=== PATIENT | female | born 1970 | race Caucasian/White ===

== ENCOUNTER → 2016-12-06 | Outpatient (CLI) | payer OTHER ==
[~2016-12-06] MED LIST: ATV5 PO; BUPR-79 PO; CHOL100010 PO; CHOL100027 PO; CLON0.5T3 PO; CYM30 PO; DXP/75 PO; ELET20TA PO; FLX10 PO; IMTUNK; KLN1X PO; MELO15TA4 PO; METO50TA16 PO; MRP25 PO; OXYC-57 PO; OXYM1TAB37 PO; OXYMTAB PO; PREG100C PO; ROPI1TAB PO; SNQ/50 PO; TOPI100T20 PO; TOPI200T14 PO; ZCR40 PO; ZNF/4 PO; ZOLP5TAB6 PO
[2016-12-06 09:53] LABS: ALT/SGPT 40 U/L (12-78); AST/SGOT 24 U/L (15-37); BLOOD UREA NITROGEN 11 mg/dl (7-18); BUN/CREATININE RATIO 12.4 (10-20); CALCIUM 9.2 mg/dl (8.5-10.1); CARBON DIOXIDE 26 mmol/L (21-32); CHLORIDE 107 mmol/L (98-107); CHOLESTEROL 161 mg/dl (0-200); CREATININE 0.92 mg/dl (0.60-1.20); GLUCOSE 107 mg/dl (70-99); POTASSIUM 4.3 mmol/L (3.5-5.1); SODIUM 142 mmol/L (136-145); TRIGLYCERIDES 222 mg/dl (0-150); VERY LOW DENSITY LIPOPROT CALC 44 mg/dl
[2016-12-06 09:56] LABS: ALB/GLOB RATIO 1.1 (0.9-2); ALKALINE PHOSPHATASE 62 U/L (45-117); CHOLESTEROL/HDL RATIO 5.2; HDL CHOLESTEROL 31 mg/dl; LDL CHOLESTEROL CALCULATED 86 mg/dl
== END | disposition home or self-care (01) ==
LOC: C.LAB 08:08
PROVIDERS: ATTEND Internal Medicine Cardiovascular Disease
DX: E78.5 Hyperlipidemia, unspecified (principal); I47.1 Supraventricular tachycardia

== ENCOUNTER 2017-01-25 22:49 | Emergency (ER) | payer OTHER ==
[~2017-01-25] VITALS: Ht 161.3 cm; Wt 107.4 kg
[~2017-01-25 22:49] MED LIST changes: -CHOL100027 PO; -CYM30 PO; -DXP/75 PO; -KLN1X PO; -MELO15TA4 PO; -METO50TA16 PO; -MRP25 PO; -OXYC-57 PO; -OXYM1TAB37 PO; -OXYMTAB PO; -SNQ/50 PO; -ZCR40 PO; -ZNF/4 PO; -ZOLP5TAB6 PO
[2017-01-25 22:55] VITALS: TEMP 36.6; Ht 161.3 cm; Wt 107.4 kg
[2017-01-25] MEDS ORDERED: DiphenhydrAMINE HCL 50 MG/ML VIAL IV STA (23:21)
[2017-01-25] MEDS ORDERED: KETOROLAC TROMETHAMINE 30 MG/ML VIAL IV STA (23:21)
[2017-01-25] MEDS ORDERED: PROCHLORPERAZINE 5 MG/ML 2 ML VIAL IV STA (23:21)
[2017-01-25] MEDS ORDERED: SODIUM CHLORIDE 0.9% 1000ML 1,000 ML IV STA (23:21)
--- NOTE | 2017-01-25 23:31 | EMERGENCY ROOM VISIT NOTE ---
History Report prepared by Yonny: Edie Regan Under the Supervision of: Dr. Julianna Roman M.D. First contact with patient: 23:10 Chief Complaint: HEADACHE Stated Complaint: MIGRAINE, R EYE AND FACE History of Present Illness The patient is a 46 year old female who presents to the Emergency Room with complaints of worsening migraine starting 2 days [employer]. The patient currently rates her pain as a 7/10 in severity. The patient states that today the migraine worsened and she started to have pain in her right eye and the whole right side of her face. The patient states that she has chronic migraine but that they have been manageable lately but her recent migraine has been worse than usual. The patient states she also has nausea associated with her migraine but denies any recent fevers, weakness or changes in her speech. She states that she use to take Topamax for her chronic migraines but that her psychiatrist took off of it. The patient states that it has been some time since her last CT scan or MRI and that she does not currently see a neurologist. The patient states that she has a medical history including fibromyalgia, rheumatoid arthritis, degenerative disc disease and gestational diabetes, but denies any other history of diabetes. Source of History: patient Onset: 2 days [employer] Position: head Symptom Intensity: 7/10 Timing: worsening, other (persistent) Associated Symptoms: No fevers, No weakness Note: Associated symptoms: right eye pain, right face pain. Patient denies any changes in her speech. Review of Systems See HPI for pertinent positives & negatives. A total of 10 systems reviewed and were otherwise negative. Past Medical & Surgical Medical Problems: (1) Degenerative disc disease (2) Gestational diabetes Family History Cancer Diabetes mellitus Heart disease Hypertension Kidney disease Kidney disease Kidney stones Lung disease Seizures Social History Smoking Status: Current Every Day Smoker Marital Status: Occupation Status: employed Current/Historical Medications Scheduled Bupropion (Wellbutrin Sr), 150 MG PO BID Cholecalciferol (Vitamin D 1000 Unit), 1,000 INTER.UNIT PO DAILY Doxepin Hcl (Sinequan), 50 MG PO DAILY Duloxetine HCl (Duloxetine HCl), 30 MG PO DAILY Meloxicam (Meloxicam), 15 MG PO DAILY Metoprolol Tartrate (Lopressor) (Lopressor), 50 MG PO BID Oxymorphone Hcl (Oxymorphone Hydrochloride), 10 MG PO Q12 Pramipexole Dihydrochloride (Pramipexole Dihydrochlori), 0.25 MG PO HS Simvastatin (Simvastatin), 40 MG PO DAILY Scheduled PRN Clonazepam (Clonazepam), 1 MG PO DAILY PRN for Anxiety Oxymorphone Hcl (Oxymorphone Hydrochloride), 5 MG PO Q6 PRN for Pain Tizanidine (Tizanidine HCl), 4 MG PO TID PRN for Anxiety Zolpidem Tartrate (Zolpidem Tartrate), 5 MG PO HS PRN for Sleep Allergies Coded Allergies: Aspirin (Verified Adverse Reaction, Mild, UPSET STOMACH, 01/26/17) Physical Exam Vital Signs Date Time Temp Pulse Resp B/P Pulse Ox O2 Delivery O2 Flow Rate FiO2 01/26/17 02:15 87 18 98/82 97 01/26/17 01:50 87 18 98/82 97 Room Air 01/25/17 23:59 80 18 126/72 95 Room Air 01/25/17 22:55 36.6 95 18 136/96 95 Room Air Physical Exam Vital signs reviewed. General: Well-appearing female, in no significant distress. HEENT: No scleral icterus, PERRLA, neck supple. Atraumatic. No meningeal signs. Cardiovascular: Regular rate and rhythm, no extra sounds. Pulmonary: Clear to auscultation bilaterally, normal work of breathing. Abdomen: Soft, nontender, nondistended, positive bowel sounds. Obese. Musculoskeletal: Atraumatic, no peripheral edema. Neurologic: Patient awake alert and oriented x 3, full strength in all 4 extremities. Cranial nerves 2 through 12 grossly intact. Skin: Warm, dry, no rash Medical Decision & Procedures ER Provider Diagnostic Interpretation: CT results as stated below per my review and radiologist interpretation: Preliminary Findings Only--See Final Report For Complete Findings; CT HEAD: Compared to 02/03/2010 No acute intracranial process. Radiologist: Grace Ramos M.D Study ready at 8926 and initial results transmitted at 0034 Laboratory Results 01/25/17 23:35 Red Blood Count 4.38, Mean Corpuscular Volume 91.6, Mean Corpuscular Hemoglobin 32.2, Mean Corpuscular Hemoglobin Concent 35.2, Mean Platelet Volume 10.3 01/25/17 23:35 Test 01/25/17 23:35 White Blood Count 12.78 K/uL (4.8-10.8) Red Blood Count 4.38 M/uL (4.2-5.4) Hemoglobin 14.1 g/dL (12.0-16.0) Hematocrit 40.1 % (37-47) Mean Corpuscular Volume 91.6 fL (80-100) Mean Corpuscular Hemoglobin 32.2 pg (25-34) Mean Corpuscular Hemoglobin Concent 35.2 g/dl (32-36) Platelet Count 237 K/uL (130-400) Mean Platelet Volume 10.3 fL (7.4-10.4) RDW Standard Deviation 44.5 fL (36.4-46.3) RDW Coefficient of Variation 13.3 % (11.5-14.5) Neutrophils % (Manual) 46.7 % Lymphocytes % (Manual) 29.9 % Variant Lymphocytes % (manual) 16.8 % Monocytes % (Manual) 1.9 % Eosinophils % (Manual) 4.7 % Neutrophils # (Manual) 5.97 K/uL (1.4-6.5) Total Absolute Neutrophils 5.97 K/uL (1.4-6.5) Lymphocytes # (Manual) 3.82 K/uL (1.2-3.4) Absolute Variant Lymphocytes 2.15 K/uL Total Absolute Lymphocytes 5.97 K/uL (1.2-3.4) Monocytes # (Manual) 0.24 K/uL (0.11-0.59) Eosinophils # (Manual) 0.60 K/uL (0-0.5) Red Blood Cell Morphology Unremarkable Anion Gap 9.0 mmol/L (3-11) Est Creatinine Clear Calc Drug Dose 69.4 ml/min Estimated GFR () 62.8 Estimated GFR (Non- 54.2 BUN/Creatinine Ratio 16.8 (10-20) Calcium Level 9.2 mg/dl (8.5-10.1) Total Bilirubin 0.3 mg/dl (0.2-1) Direct Bilirubin < 0.1 mg/dl (0-0.2) Aspartate Amino Transf (AST/SGOT) 21 U/L (15-37) Alanine Aminotransferase (ALT/SGPT) 42 U/L (12-78) Alkaline Phosphatase 71 U/L (45-117) Total Protein 7.4 gm/dl (6.4-8.2) Albumin 4.1 gm/dl (3.4-5.0) Laboratory results per my review. Medications Administered Medications (Trade) Dose Ordered Sig/Aisha Route Start Time Stop Time Status Last Admin Dose Admin Prochlorperazine Edisylate (Compazine Inj) 10 mg NOW STAT IV 01/25/17 23:21 01/25/17 23:23 DC 01/25/17 23:44 10 MG Diphenhydramine HCl (Benadryl Inj) 25 mg NOW STAT IV 01/25/17 23:21 01/25/17 23:23 DC 01/25/17 23:44 25 MG Ketorolac Tromethamine 30 mg 30 mg NOW STAT IV 01/25/17 23:21 01/25/17 23:23 DC 01/25/17 23:44 30 MG Sodium Chloride (Nss 1000ml) 1,000 ml @ 999 mls/hr Q1H1M STAT IV 01/25/17 23:21 01/26/17 00:21 DC 01/25/17 23:44 999 MLS/HR Morphine Sulfate (MoRPHine SULFATE INJ) 6 mg NOW STAT IV 01/26/17 00:40 01/26/17 00:42 DC 01/26/17 00:47 6 MG ED Course 2319: Past medical records reviewed. The patient was evaluated in room B8. A complete history and physical examination was performed. 2321: Ordered Sodium Chloride 1,000 ml @ 999 mls/hr IV, Toradol Inj 30 mg IV, Benadryl Inj 25 mg IV, Compazine Inj 10 mg IV. 0039: I reevaluated the patient and she states she still was having a headache but it has improved from a 7/10 to a 4/10. 0040: Ordered Morphine Sulfate 6 mg IV. 0212: Upon reevaluation, the patient appeared to have improvement of her symptoms. I discussed findings with her. She verbalized agreement of the treatment plan. The patient was discharged home. Medical Decision DDx: Intracranial hemorrhage, intracranial mass, migraine headache, tension headache , sinusitis, meningitis This pt was evaluated and appeared to be in no distress. IV access was obtained and lab work was drawn. Pt was placed on the oncology specialist. Pt was medicated with IV compazine, benadryl and toradol with 1 L NSS. Pt had significant improvement in the FULTON, but rated pain 4/10. CT head was performed as she has not been seen for FULTON in some time and it seems worse than usual. This study is negative. Labs reveal a mild leukocytosis and hyperglycemia. Pt was given IV morphine 6 mg with significant relief. Pt was d/c to the care of her s/o to f/u with PCP this week. She will return to the ED for worsening of symptoms or any medical concerns. Impression Primary Impression: Migraine headache Scribe Attestation The scribe's documentation has been prepared under my direction and personally reviewed by me in its entirety. I confirm that the note above accurately reflects all work, treatment, procedures, and medical decision making performed by me. Departure Information Dispostion Home / Self-Care Referrals Kitty Leyva PA-C (PCP) Forms HOME CARE DOCUMENTATION FORM, IMPORTANT VISIT INFORMATION Patient Instructions My [facility] Additional Instructions Diagnosis: Migraine headache Drink plenty of clear fluids. Resume your medications as prescribed. Follow-up with your physician this week for reevaluation. Return to the ER for worsening of symptoms or any medical concerns.
[2017-01-25 23:46] LABS: HEMATOCRIT 40.1 % (37-47); MEAN CELL VOLUME 91.6 fL (80-100); MEAN CORPUSCULAR HEMOGLOBIN 32.2 pg (25-34); MEAN CORPUSCULAR HGB CONC 35.2 g/dl (32-36); MEAN PLATELET VOLUME 10.3 fL (7.4-10.4); PLATELET COUNT 237 K/uL (130-400); RED BLOOD COUNT 4.38 M/uL (4.2-5.4); WHITE BLOOD COUNT 12.78 K/uL (4.8-10.8)
[2017-01-26 00:03] LABS: ALT/SGPT 42 U/L (12-78); BLOOD UREA NITROGEN 20 mg/dl (7-18); BUN/CREATININE RATIO 16.8 (10-20); CALCIUM 9.2 mg/dl (8.5-10.1); CARBON DIOXIDE 26 mmol/L (21-32); CHLORIDE 108 mmol/L (98-107); GLUCOSE 122 mg/dl (70-99); POTASSIUM 3.7 mmol/L (3.5-5.1); SODIUM 143 mmol/L (136-145)
[2017-01-26 00:06] LABS: ALKALINE PHOSPHATASE 71 U/L (45-117); AST/SGOT 21 U/L (15-37)
[2017-01-26] MEDS ORDERED: MoRPHine SULFATE 10 MG/ML CARP/VIAL IV STA (00:40)
[2017-01-26 00:53] LABS: COMPLETE YES; EOSINOPHIL % 4.7 %; LYMPH ABS # 3.82 K/uL (1.2-3.4); LYMPHOCYTE % 29.9 %; NEUTROPHILS % 46.7 %; VARIANT LYM ABS # 2.15 K/uL; VARIANT LYMPHOCYTE % 16.8 %
[2017-01-26] MEDS ORDERED: METO50TA16 PO (02:09)
[2017-01-26] MEDS ORDERED: KLN1X PO (02:09)
[2017-01-26] MEDS ORDERED: OXYM1TAB37 PO (02:09)
[2017-01-26] MEDS ORDERED: ZCR40 PO (02:09)
[2017-01-26] MEDS ORDERED: MELO15TA4 PO (02:09)
[2017-01-26] MEDS ORDERED: ZNF/4 PO (02:09)
[2017-01-26] MEDS ORDERED: OXYMTAB PO (02:09)
[2017-01-26] MEDS ORDERED: ZOLP5TAB6 PO (02:09)
[2017-01-26] MEDS ORDERED: MRP25 PO (02:09)
[2017-01-26] MEDS ORDERED: CHOL100027 PO (02:11)
[2017-01-26] MEDS ORDERED: CYM30 PO (02:12)
[2017-01-26] MEDS ORDERED: SNQ/50 PO (02:12)
[2017-01-26 02:15] VITALS: BP 98/82; PULSE 87; O2SAT 97
--- NOTE | 2017-01-26 07:18 | DIAGNOSTIC IMAGING REPORT ---
CT SCAN OF THE BRAIN WITHOUT IV CONTRAST CLINICAL HISTORY: Headache. COMPARISON STUDY: CT of the brain dated 02/03/2010. TECHNIQUE: Unenhanced axial CT scan of the brain is performed from the vertex to the skull base. Automated dose control exposure was utilized. CT DOSE: 537.48 mGy.cm FINDINGS: Brain parenchyma: The brain parenchyma is normal in appearance. There is no hemorrhage, mass effect, or evidence of acute territorial ischemia by CT criteria. Ho-white matter is preserved. No extra-axial fluid collection is seen. Ventricles, sulci, cisterns: Normal in configuration. Intracranial vasculature: The visualized intracranial vasculature at the skull base is normal in appearance. Calvarium: Unremarkable. Sinuses and mastoids: The visualized paranasal sinuses are clear. The mastoid air cells are well pneumatized. Orbits: The bony orbits are grossly intact. IMPRESSION: No acute intracranial abnormality. Electronically signed by: Jason Roe M.D. 01/26/2017 7:16 AM Dictated Date/Time: 01/26/2017 7:15 AM
[2017-04-25] MEDS ORDERED: DXP/75 PO (15:23)
[2017-04-27] MEDS ORDERED: OXYC-57 PO (10:41)
== END 2017-01-26 02:15 | disposition home or self-care (01) ==
LOC: C.EDB 22:52
DX: G43.909 Migraine, unspecified, not intractable, without status migrainosus (principal); F17.200 Nicotine dependence, unspecified, uncomplicated

== ENCOUNTER → 2017-04-24 | Outpatient (CLI) | payer OTHER ==
[~2017-04-24] MED LIST changes: -ATV5 PO; -CHOL100010 PO; +CHOL100027 PO; -CLON0.5T3 PO; +CYM30 PO; +DXP/75 PO; -ELET20TA PO; -FLX10 PO; -IMTUNK; +KLN1X PO; +MELO15TA4 PO; +METO50TA16 PO; +MRP25 PO; +OXYC-57 PO; +OXYM1TAB37 PO; +OXYMTAB PO; -PREG100C PO; -ROPI1TAB PO; +SNQ/50 PO; -TOPI100T20 PO; -TOPI200T14 PO; +ZCR40 PO; +ZNF/4 PO; +ZOLP5TAB6 PO
[2017-04-24 10:00] LABS: BASO % 0.3 %; BASO ABS # 0.03 K/uL (0-0.2); COMPLETE YES; EOS % 1.5 %; HEMATOCRIT 43.9 % (37-47); IG% 0.2 %; LYMPH % 47.9 %; LYMPH ABS # 4.81 K/uL (1.2-3.4); MEAN CELL VOLUME 92.8 fL (80-100); MEAN CORPUSCULAR HEMOGLOBIN 31.7 pg (25-34); MEAN CORPUSCULAR HGB CONC 34.2 g/dl (32-36); MEAN PLATELET VOLUME 10.6 fL (7.4-10.4); MONO % 6.6 %; NEUT % 43.5 %; PLATELET COUNT 252 K/uL (130-400); RED BLOOD COUNT 4.73 M/uL (4.2-5.4); WHITE BLOOD COUNT 10.05 K/uL (4.8-10.8)
--- NOTE | 2017-04-24 10:17 | DIAGNOSTIC IMAGING REPORT ---
TWO VIEW CHEST CLINICAL HISTORY: Preoperative examination. FINDINGS: PA and lateral chest radiographs are compared to study dated 04/03/2014. The examination is degraded by large body habitus. The cardiomediastinal silhouette is unremarkable. There is chronic elevation of the right hemidiaphragm with minimal right basilar atelectasis. The lungs and pleural spaces are otherwise clear. There is no pneumothorax. The bony thorax appears intact. IMPRESSION: No active disease in the chest. Electronically signed by: Jason Roe M.D. 04/24/2017 10:16 AM Dictated Date/Time: 04/24/2017 10:15 AM
--- NOTE | 2017-04-24 10:19 | DIAGNOSTIC IMAGING REPORT ---
LUMBAR SPINE 5 VIEWS CLINICAL HISTORY: Chronic low back pain. FINDINGS: 5 views of the lumbar spine are compared to study dated 11/03/2014. The skeletal structures are well mineralized. There is no radiographic evidence of fracture or malalignment. Vertebral body height and alignment are maintained. There is mild straightening of the lumbar lordosis. Minimal facet arthropathy seen in the lower lumbar region. The transverse and spinous processes are intact. There is no evidence of spondylolysis. Tiny anterior osteophytes are seen throughout. Mild degenerative disc space narrowing is seen at L2-L3 and L3-L4. The remaining Intervertebral disc spaces appear maintained. The visualized bony pelvis appears intact. There is a nonobstructed abdominal bowel gas pattern. There is mild colonic fecal retention. Cholecystectomy clips are noted in the right upper quadrant. There is mild atherosclerotic calcification of the abdominal aorta, advanced for age. IMPRESSION: 1. No acute bony abnormality is seen involving the lumbosacral spine. 2. Mild degenerative change as above. Electronically signed by: Jason Roe M.D. 04/24/2017 10:18 AM Dictated Date/Time: 04/24/2017 10:16 AM
[2017-04-24 10:33] LABS: BLOOD UREA NITROGEN 12 mg/dl (7-18); CALCIUM 9.7 mg/dl (8.5-10.1); CARBON DIOXIDE 29 mmol/L (21-32); CHLORIDE 105 mmol/L (98-107); CREATININE 0.98 mg/dl (0.60-1.20); GLUCOSE 102 mg/dl (70-99); POTASSIUM 4.6 mmol/L (3.5-5.1); SODIUM 141 mmol/L (136-145)
--- NOTE | 2017-04-24 10:33 | DIAGNOSTIC IMAGING REPORT ---
SACRUM AND SACROILIAC JOINTS 3 VIEWS CLINICAL HISTORY: Chronic low back pain. FINDINGS: 3 views of the sacrum and sacroiliac joints are correlated with pelvic CT dated 04/24/2010. The skeletal structures are well mineralized. There is no radiographic evidence of sacral fracture. Minimal degenerative sclerosis is noted in the sacroiliac joints. No erosive change is identified. The remainder of the visualized bony pelvis is. There is a nonobstructed abdominal bowel gas pattern. IMPRESSION: No acute bony abnormality is seen. Minimal degenerative change as above. Electronically signed by: Jason Roe M.D. 04/24/2017 10:32 AM Dictated Date/Time: 04/24/2017 10:30 AM
== END | disposition home or self-care (01) ==
LOC: C.LAB 09:05
PROVIDERS: ATTEND Orthopaedic Surgery
DX: Z01.818 Encounter for other preprocedural examination (principal); S46.111A Strain of muscle, fascia and tendon of long head of biceps, right arm, initial encounter; X58.XXXA Exposure to other specified factors, initial encounter; M51.36 Other intervertebral disc degeneration, lumbar region; M54.16 Radiculopathy, lumbar region

== ENCOUNTER → 2017-04-27 | Day surgery (SDC) | payer OTHER ==
[2017-04-25 15:24] VITALS: Ht 162.6 cm; Wt 106.8 kg
[~2017-04-27] VITALS: Ht 162.6 cm; Wt 106.8 kg
[~2017-04-27] MED LIST changes: +ATROPINE SULFATE 0.1 MG/ML 5ML SYR IV PRN; +BUPIVACAINE/EPINEPHRINE 0.25% 1:200,000 30 ML VIAL ONE; +CEFAZOLIN 2000 MG/60 ML D5W IV SCH; +DEXAMETHASONE SOD INJ 4 MG/ML VIAL IV PRN; +DEXAMETHASONE SOD INJ 4 MG/ML VIAL ONE; +EpHEDrine SULFATE INJ 50 MG/ML AMP IV PRN; +EpINEphrine INJ 1MG/ML AMP 1 MG/ML AMP ONE; +FENTANYL CITRATE INJ 50 MCG/1 ML 2 ML VIAL IV PRN; +FENTANYL CITRATE INJ 50 MCG/1 ML 2 ML VIAL ONE; +KETOROLAC TROMETHAMINE 30 MG/ML VIAL IV. PRN; +LABETALOL HCL IV 5 MG/ML 20ML IV PRN; +LACTATED RINGER'S 1000ML 1,000 ML IV SCH; +LIDOCAINE HCL 1% MPF 2 ML VIAL ONE; +LIDOCAINE HCL 2% 2 ML VIAL (20MG/ML) ONE; +METOCLOPRAMIDE HCL INJ 5 MG/ML 2 ML VIAL IV PRN; +MIDAZOLAM HCL 1 MG/ML 2ML VIAL ONE; +MoRPHine SULFATE 10 MG/ML CARP/VIAL IV PRN; +ONDANSETRON INJ 2 MG/ML 2 ML VIAL IV PRN; +ONDANSETRON INJ 2 MG/ML 2 ML VIAL ONE; +OXYCODONE/ACETAMINOPHEN 5-325 TAB PO PRN; +PHENYLEPHRINE 100MCG/ML 5ML SYR IV PRN; +PROPOFOL IV EMULSION 10 MG/ML 20 ML VIAL IV ONE; +ROPIVACAINE 0.5% 5 MG/ML 30 ML VIAL ONE; -SNQ/50 PO; +SODIUM CHLORIDE 0.9% 1000ML 1,000 ML IV SCH
--- NOTE | 2017-04-27 06:59 | History & Physical Bridge - SC ---
H&P Re-Evaluation Bridge Note: I have examined the patient, reviewed the History & Physical and in the interval since the performance of the History & Physical I have noted the following changes of clinical significance: No changes noted
--- NOTE | 2017-04-27 10:42 | Discharge Instructions-SurgCtr ---
Discharge Instructions Date of Service Apr 27, 2017. Visit Reason for Visit: Right Shoulder Rotator Cuff Syndrome, Biceps Tendo Discharge Discharge Diagnosis / Problem: SAME ABOVE Discharge Goals Goal(s): Decrease discomfort, Improve function Activity Recommendations Activity Limitations: as noted below Lifting Limitations: until after follow-up appointment Exercise/Sports Limitations: gradually increase as tolerated Shower/Bathe: tomorrow Anesthesia . Post Anesthesia Instructions: If you have had General Anesthesia or IV Sedation: * Do not drive today. * Resume driving when surgeon permits. * Do not make important decisions or sign legal documents today. * Call surgeon for: 1. Temperature elevations greater than 101 degrees F. 2. Uncontrollable pain. 3. Excessive bleeding. 4. Persistent nausea and vomiting. 5. Medication intolerance (nausea, vomiting or rash). * For nausea and vomiting use only clear liquids such as: tea, soda, bouillon until nausea subsides, then gradually increase diet as tolerated. * If you have any concerns or questions, call your surgeon's office. If physician is unavailable and it is an emergency, call 911 or go to the nearest emergency room. . Instructions / Follow-Up Instructions / Follow-Up MEDICATIONS: * Resume previous medications unless instructed otherwise by your surgeon. * Always take pain medication on a full stomach or with food to avoid upset stomach. * Do not drink alcohol or drive while taking narcotics. * Ibuprofen or Tylenol may be taken if narcotic not needed. SPECIAL CARE INSTRUCTIONS: __ None _X_ Keep extremity elevated and iced x 48 hours; apply ice 20-30 minutes 8-10 times/day. May remove at night. __ Sling __24 hrs/day __ Remove at night _X_ Shoulder Immobilizer (MAY REMOVE AFTER 48 HOURS ONLY TO SHOWER AND FOR THERAPY) _X_ 24 hrs/day __ Remove at night _X_ Dressing __ Maintain until seen in office, may shower with plastic over site _X_ Remove dressings in 24-48 hours and then may shower _X_ Cover incisions with band-aids after showering __ Do not remove steri-strips Call physician if chills or temperature rises above 102 degrees or pain unrelieved by prescribed pain medications at . . Diet Recommendations Home Diet: no limitations Fluid Restriction: None Procedures Procedures Performed: Right Shoulder Arthroscopy, Medium Rotator Cuff Repair, Acromioplasty, Distal Clavicle Resection Pending Studies Studies pending at discharge: no Work Instructions Return To Work: after follow-up Lifting Limitations: NO LIFTING WITH RIGHT ARM Medical Emergencies . Who to Call and When: Medical Emergencies: If at any time you feel your situation is an emergency, please call 911 immediately. . Non-Emergent Contact Non-Emergency issues call your: Primary Care Provider Call Non-Emergent contact if: you have a fever, temperature is above 101.5 . . "Provider Documentation" section prepared by Kwasi Vivas. .
--- NOTE | 2017-04-27 10:56 | [facility] Post Operative Brief Note ---
Immediate Operative Summary Operative Date Apr 27, 2017. Pre-Operative Diagnosis Right Shoulder Rotator Cuff Tear, A/C Joint Arthritis Post-Operative Diagnosis Same Procedure(s) Performed Right Shoulder Arthroscopy, Medium Rotator Cuff Repair, Acromioplasty, Distal Clavicle Resection Surgeon Dr. Urbina Talent Analyst Surgeon(s) Angela Vivas PA-C Estimated Blood Loss 5 ml Findings as above Specimens None Complication(s) None Disposition Recovery Room / PACU
--- NOTE | 2017-04-27 11:17 | Anesthesia Progress Nt - [facility] ---
Anesthesia Post Op Note Date & Time Apr 27, 2017 at 11:17 Vital Signs Pain Intensity: 6 Vital Signs Past 12 Hours Date Time Temp Pulse Resp B/P (MAP) Pulse Ox O2 Delivery O2 Flow Rate FiO2 04/27/17 10:41 36.5 77 18 149/105 98 Diffusion Mask 10 04/27/17 09:16 76 23 04/27/17 09:16 76 04/27/17 09:15 76 17 98 04/27/17 09:15 76 04/27/17 09:11 106/79 04/27/17 09:10 73 13 98 04/27/17 09:10 74 04/27/17 09:09 77 04/27/17 09:09 77 17 98 04/27/17 09:06 105/74 04/27/17 09:04 72 14 97 04/27/17 09:04 73 04/27/17 09:01 108/89 04/27/17 08:59 78 14 97 04/27/17 08:59 76 04/27/17 08:58 100/66 04/27/17 08:54 75 0 04/27/17 08:49 75 0 04/27/17 08:44 74 0 04/27/17 08:39 72 0 04/27/17 08:34 71 0 04/27/17 08:29 67 0 04/27/17 08:24 73 0 04/27/17 08:19 72 0 04/27/17 08:14 79 0 04/27/17 08:09 73 0 04/27/17 08:04 71 0 04/27/17 07:59 20 04/27/17 07:59 74 20 04/27/17 07:34 36.3 74 18 120/78 (92) 94 Room Air Notes Mental Status: alert / awake / arousable, participated in evaluation Pt Amnestic to Procedure: Yes Nausea / Vomiting: adequately controlled Pain: adequately controlled Airway Patency, RR, SpO2: stable & adequate BP & HR: stable & adequate Hydration State: stable & adequate Anesthetic Complications: no major complications apparent
[2017-04-27 11:29] VITALS: TEMP 36.4
[2017-04-27 12:08] VITALS: BP 125/83; PULSE 83; O2SAT 91
--- NOTE | 2017-05-09 10:50 | OPERATIVE REPORT ---
CHIEF COMPLAINT: Severe external impingement and possible rotator cuff tear of the right shoulder. POSTOPERATIVE DIAGNOSIS: Same. PROCEDURE: Right shoulder diagnostic arthroscopy with extensive debridement, acromioplasty, distal clavicle resection, and medium-sized rotator cuff repair. SURGEON: Dr. Eugenio Urbina. TICKET COUNTER: Epifanio Vivas PA-C, whose assistance was necessary for positioning of the arm and helping with instrumentation. ANESTHESIA: General with a right interscalene nerve block. COMPLICATIONS: None. CONDITION: Stable to PACU. INDICATIONS: Maria Luisa is a pleasant 46-year-old female who has been having chronic right shoulder pain. She did suffer a proximal biceps tendon rupture. She continued to have shoulder pain so I got an MRI of her shoulder which showed severe external impingement, AC joint arthritis, and possible rotator cuff tear. She elected to undergo arthroscopy. On April 27, 2017, she arrived at [facility] for the above procedure. She was seen in the preoperative holding area and the operative extremity was identified and signed. She was given a preoperative antibiotic and a right interscalene nerve block. She was taken back to the operating room, laid on the table in the supine position and put under general anesthesia. The right shoulder was then prepped and draped in sterile fashion. Time-out was done. The patient and the operative extremity was properly identified. A scope was introduced in the posterior portal. Diagnostic arthroscopy showed no cartilage damage to the humeral head of the glenoid. The biceps tendon was absent. There was a tear of the entire supraspinatus which was more tearing than I was expecting. The infraspinatus, teres minor, and subscapularis were checked and intact. An anterior portal was made and a shaver was used to a debridement of some of the anterior articular structures and debride back the biceps stump to stable margins. The scope was then placed in the subacromial space and a lateral portal was made. A shaver was used to a complete subacromial and subdeltoid bursectomy. Significant time was spent doing extensive debridement of the bursa. The coracoacromial ligament was teased off the undersurface of the acromion and a 5.0 bur was used to create an acromioplasty with Bigliani type 3 acromion. A shaver was used to remove any excess debris and attention was turned to the rotator cuff. There was a medium-sized crescent-shaped rotator cuff tear. An additional anterolateral portal was made with Penny cannulas replacing each of the lateral portals. The greater tuberosity was prepared with a ring curette and a microfracture. The rotator cuff was then fixed with an Arthrex B bridge configuration using 4.75 mm biocomposite swivel lock suture anchors. This gave a nice knot-less B bridge repair. Multiple pictures were taken. Attention was then turned to the distal clavicle. Through an anterior portal, shaver and a blade were used to skeletonize the distal clavicle. A 5.0 bur was then used to resect the distal 5 mm from the clavicle. Complete resection was checked under direct visualization. The scope was then placed back into the glenohumeral joint and the articular margin of the rotator cuff was then restored. Multiple pictures were taken. Arthroscopic instruments were removed from the shoulder. Portal sites were closed with 3-0 nylon. She was then placed in a soft dressing and adduction arm sling. She was then extubated, transferred to a litter, and taken to the postanesthesia care unit in stable condition. She tolerated the procedure well.
== END | disposition home or self-care (01) ==
LOC: X.SURG 07:21
PROVIDERS: ATTEND Orthopaedic Surgery
DX: M75.101 Unspecified rotator cuff tear or rupture of right shoulder, not specified as traumatic (principal); E66.9 Obesity, unspecified; Z90.49 Acquired absence of other specified parts of digestive tract; Z98.51 Tubal ligation status; Z90.89 Acquired absence of other organs; Z90.710 Acquired absence of both cervix and uterus; Z98.890 Other specified postprocedural states; F17.200 Nicotine dependence, unspecified, uncomplicated; Z82.49 Family history of ischemic heart disease and other diseases of the circulatory system; Z83.3 Family history of diabetes mellitus; Z80.41 Family history of malignant neoplasm of ovary

== ENCOUNTER → 2017-10-13 | Outpatient (CLI) | payer OTHER ==
[~2017-10-13] MED LIST changes: -ATROPINE SULFATE 0.1 MG/ML 5ML SYR IV PRN; -BUPIVACAINE/EPINEPHRINE 0.25% 1:200,000 30 ML VIAL ONE; -CEFAZOLIN 2000 MG/60 ML D5W IV SCH; -DEXAMETHASONE SOD INJ 4 MG/ML VIAL IV PRN; -DEXAMETHASONE SOD INJ 4 MG/ML VIAL ONE; -EpHEDrine SULFATE INJ 50 MG/ML AMP IV PRN; -EpINEphrine INJ 1MG/ML AMP 1 MG/ML AMP ONE; -FENTANYL CITRATE INJ 50 MCG/1 ML 2 ML VIAL IV PRN; -FENTANYL CITRATE INJ 50 MCG/1 ML 2 ML VIAL ONE; -KETOROLAC TROMETHAMINE 30 MG/ML VIAL IV. PRN; -LABETALOL HCL IV 5 MG/ML 20ML IV PRN; -LACTATED RINGER'S 1000ML 1,000 ML IV SCH; -LIDOCAINE HCL 1% MPF 2 ML VIAL ONE; -LIDOCAINE HCL 2% 2 ML VIAL (20MG/ML) ONE; -METOCLOPRAMIDE HCL INJ 5 MG/ML 2 ML VIAL IV PRN; -MIDAZOLAM HCL 1 MG/ML 2ML VIAL ONE; -MoRPHine SULFATE 10 MG/ML CARP/VIAL IV PRN; -ONDANSETRON INJ 2 MG/ML 2 ML VIAL IV PRN; -ONDANSETRON INJ 2 MG/ML 2 ML VIAL ONE; -OXYC-57 PO; -OXYCODONE/ACETAMINOPHEN 5-325 TAB PO PRN; -PHENYLEPHRINE 100MCG/ML 5ML SYR IV PRN; -PROPOFOL IV EMULSION 10 MG/ML 20 ML VIAL IV ONE; -ROPIVACAINE 0.5% 5 MG/ML 30 ML VIAL ONE; -SODIUM CHLORIDE 0.9% 1000ML 1,000 ML IV SCH
--- NOTE | 2017-10-16 08:00 | MAMMOGRAPHY REPORT ---
BILATERAL DIGITAL SCREENING MAMMOGRAM TOMOSYNTHESIS WITH CAD: 10/13/2017 CLINICAL HISTORY: Routine screening. Patient has no complaints. TECHNIQUE: Breast tomosynthesis in addition to standard 2D mammography was performed. Current study was also evaluated with a Computer Aided Detection (CAD) system. COMPARISON: Comparison is made to exams dated: 02/24/2015 ultrasound, 02/24/2015 mammogram - [facility], 12/06/2007, and 12/06/2007. BREAST COMPOSITION: The tissue of both breasts is almost entirely fatty. FINDINGS: No suspicious masses, calcifications, or areas of architectural distortion are noted in ei ther breast. There has been no significant interval change compared to prior exams. Scattered bilater al benign-appearing calcifications are not significantly changed. IMPRESSION: ACR BI-RADS CATEGORY 2: BENIGN There is no mammographic evidence of malignancy. A 1 year screening mammogram is recommended. The pa tient will receive written notification of the results. Approximately 10% of breast cancers are not detected with mammography. A negative mammographic report should not delay biopsy if a clinically suggestive mass is present. Edwina Hamm M.D. ah/:10/13/2017 16:47:31 Spd Tech: Margaret GUZMAN(R)(M), [facility] letter sent: Normal 1/2 BI-RADS Code: ACR BI-RADS Category 2: Benign
== END | disposition home or self-care (01) ==
LOC: C.MAMM 12:56
PROVIDERS: ATTEND Physician Assistant
DX: Z12.31 Encounter for screening mammogram for malignant neoplasm of breast (principal)